=== PATIENT | female | born 1985 | race African-American/Black ===

== ENCOUNTER 2017-11-24 08:08 | Emergency (ER) | payer OTHER ==
[~2017-11-24] VITALS: Ht 160 cm; Wt 67.1 kg
--- NOTE | 2017-11-24 09:00 | PHYS DOC ---
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 Her migraine began yesterday beginning in the same location as typically does over the left druze left side of the head. Described as a dull throbbing. It is 10 of 10 at this time. Is not worse of life and sudden onset there is some neck pain associated with this as well as well as photophobia and mild nausea. These are all typical findings. Patient's pain is usually minimal to the use of Imitrex which did not help her migraine today. She has no ear pain, no cough no rash no runny nose. Patient denies any trauma. Denies any numbness and tingling in her upper limbs. Denies any chest pain or shortness of breath. There is no new characteristics to this pain today this is her typical migraine. Review of Systems Review of Systems Constitutional: Denies fever or chills [] Eyes: Denies change in visual acuity, redness, or eye pain [] HENT: Denies nasal congestion or sore throat [] Respiratory: Denies cough or shortness of breath [] Cardiovascular: No additional information not addressed in HPI [] GI: Denies abdominal pain, positive for nausea and negative for vomiting diarrhea bloody stools and constipation : Denies dysuria or hematuria [] Musculoskeletal: Denies back pain or joint pain [] Integument: Denies rash or skin lesions [] Neurologic: Positive for headache negative for focal weakness or sensory changes positive for photophobia and nausea Endocrine: Denies polyuria or polydipsia [] All other systems were reviewed and found to be within normal limits, except as documented in this note. Current Medications Current Medications Current Medications Medications (Trade) Dose Ordered Sig/Nichol Start Time Stop Time Status Last Admin Dose Admin Dexamethasone Sodium Phosphate (Decadron) 10 mg 1X ONCE 11/24/17 09:00 11/24/17 09:01 UNV Diphenhydramine HCl (Benadryl) 50 mg 1X ONCE 11/24/17 09:00 11/24/17 09:01 UNV Ketorolac Tromethamine (Toradol) 30 mg 1X ONCE 4/10/18 09:00 11/24/17 09:01 UNV Ondansetron HCl (Zofran) 4 mg 1X ONCE 11/24/17 09:00 11/24/17 09:01 UNV Sodium Chloride 1,000 ml @ 1,000 mls/hr 1X ONCE 11/24/17 09:00 4 09:59 UNV Physical Exam Physical Exam Other vital signs recorded on the chart at this time within normal limits no fever no tachypnea Constitutional: Well developed, well nourished, no acute distress, non-toxic appearance. Patient is obvious uncomfortable laying flat on the bed saying that heart services to better than soft services [] HENT: Normocephalic, atraumatic, bilateral external ears normal, oropharynx moist, no oral exudates, nose normal. Shannon tenderness palpation or evidence of palpable cord[] Eyes: PERRLA, EOMI, conjunctiva normal, no discharge. [] Neck: Normal range of motion, mild tenderness to palpation over the lateral aspect of the left neck which is typical for patient., supple, no stridor. [] Cardiovascular:Heart rate regular rhythm, no murmur [] Lungs & Thorax: Bilateral breath sounds clear to auscultation [] Skin: Warm, dry, no erythema, no rash. [] Back: No tenderness, no CVA tenderness. [] Extremities: No tenderness, ROM intact, no edema. [] Neurologic: Alert and oriented X 3, normal motor function, normal sensory function, no focal deficits noted. [] Psychologic: Affect normal, judgement normal, mood normal. [] EKG EKG [] Radiology/Procedures Radiology/Procedures [] Course & Med Decision Making Course & Med Decision Making Pertinent Labs and Imaging studies reviewed. (See chart for details) []Patient is a pleasant 32-year-old female history of migraine. There is nothing new about this particular migraine there is nothing sudden onset about the sinus which applied some associated fever or nuchal rigidity. Time is now 9:30 patient's to receiving her medications Time is now 10 AM patient received her medication she feels markedly better and her headache is dissipating quite quickly but she is slightly jittery from the Benadryl. We will refrain from using 50 mg doses next time she was here if necessary go to 25 mg dose and incrementally increased as she sees improvement. MDM headache reevaluation: The patient presented to the emergency part with headache. The patient is now resting comfortably and feels better, is awake, talkative, interactive, and in no acute distress. The patient appears well and is able to tolerate by mouth fluids and medications. Repeat evaluation is unremarkable without any specific neurologic findings. The patient is neurologically intact, has normal mental status, and is ambulatory in the ED. The history, exam, and any diagnostic testing completed in the ED (if any) and the patient's current condition do not suggest meningitis, stroke, sepsis, subarachnoid hemorrhage, intracranial bleed , encephalitis, temporal arteritis, or other significant pathology warranting further testing and continue treatment in the ED. At this point I do not believe admission or neurologic consultation or other specialist evaluation are needed at this point. The patient's vital signs have been stabilized. Patient' s condition is stable and appropriate for discharge. The patient will pursue further up and evaluation with primary care and other designated resources or consulting physicians as indicated in the discharge instructions. Impression: Migraine headache discharge: I've spoken with the patient and/or caregivers. I've explained the patient's condition, diagnosis and treatment plan based on information available to me at this time. I've answered the patient's and/or caregivers questions and addressed any concerns. The patient and/or caregivers have a good understanding the patient's diagnosis, condition and treatment plan as can be expected at this point. Vital signs have been stabilized. The patient's condition is stable for discharge from the emergency department. The patient will pursue further outpatient evaluation with her primary care provider or other designated consulting physician as outlined in the discharge instructions. Patient and/or caregivers are agreeable to this plan of care and follow-up instructions have been explained in detail. The patient and/or caregivers have received these instructions in written format and expressed understanding of these discharge instructions. The patient and her caregivers are aware that if any significant change in condition or worsening of symptoms should prompt him to immediately return to this of the closest emergency department. If an emergent department is not readily available I would encourage him to call 911. Renita Disclaimer Renita Disclaimer This electronic medical record was generated, in whole or in part, using a voice recognition dictation system. Departure Departure: Impression: Primary Impression: Migraine headache Disposition: 01 HOME, SELF-CARE Condition: STABLE Referrals: LUIS ANGEL SANDOVAL (PCP) Patient Instructions: Migraine Headache Additional Instructions: discharge: I've spoken with the patient and/or caregivers. I've explained the patient's condition, diagnosis and treatment plan based on information available to me at this time. I've answered the patient's and/or caregivers questions and addressed any concerns. The patient and/or caregivers have a good understanding the patient's diagnosis, condition and treatment plan as can be expected at this point. Vital signs have been stabilized. The patient's condition is stable for discharge from the emergency department. The patient will pursue further outpatient evaluation with her primary care provider or other designated consulting physician as outlined in the discharge instructions. Patient and/or caregivers are agreeable to this plan of care and follow-up instructions have been explained in detail. The patient and/or caregivers have received these instructions in written format and expressed understanding of these discharge instructions. The patient and her caregivers are aware that if any significant change in condition or worsening of symptoms should prompt him to immediately return to this of the closest emergency department. If an emergent department is not readily available I would encourage him to call 911. Scripts Naproxen Sodium (NAPROXEN SODIUM) 275 Mg Tablet 275 MG PO BID for 7 Days, #14 TAB Prov: JAVIER SMITH MD 11/24/17 Prochlorperazine Maleate (Compazine) 10 Mg Tablet 10 MG PO TID for 5 Days, #15 TAB Prov: JAVIER SMITH MD 11/24/17 JAVIER SMITH MD Nov 24, 2017 09:00
[2017-11-24] MEDS: DEXAMETHASONE SOD PHOS 10 MG/ML VIAL IV ONE (09:29)
[2017-11-24] MEDS: diphenhydrAMINE 50 MG/ML VIAL IVP ONE (09:29)
[2017-11-24] MEDS: KETOROLAC 30 MG/ML VIAL. IV ONE (09:30)
[2017-11-24] MEDS: ONDANSETRON PF 4 MG/2 ML VIAL. IV ONE (09:31)
[2017-11-24] MEDS: IV NORMAL SALINE 1,000ML 1,000 ML IV ONE (09:32)
[2017-11-24] MEDS ORDERED: NAPR275T59 PO (10:05)
[2017-11-24] MEDS ORDERED: PROC10TA57 PO (10:05)
[2017-11-24 10:30] VITALS: BP 134/83
== END 2017-11-24 10:25 | disposition home or self-care (01) ==
LOC: ER 08:08
DX: G43.909 Migraine, unspecified, not intractable, without status migrainosus (principal); M54.2 Cervicalgia
CPT/HCPCS: 96361; 96374; 96375; 99284; J1100; J1200; J1885; J2405; J7030